=== PATIENT | female | born 1975 | race Caucasian/White ===

== ENCOUNTER 2018-05-08 08:57 | Day surgery (SDC) | payer MEDICAID ==
[~2018-05-08] VITALS: Ht 149.9 cm; Wt 52.6 kg
[2018-05-08] MEDS ORDERED: fentaNYL 0.05 MG/ML VIAL ONE (09:37)
[2018-05-08] MEDS ORDERED: MIDAZOLAM 2 MG/2 ML VIAL ONE (09:37)
[2018-05-08] MEDS ORDERED: MIDAZOLAM 2 MG/2 ML VIAL IVP ONE (10:25)
== END 2018-05-08 10:38 | disposition home or self-care (01) ==
LOC: MMU 08:57 → MDS 08:57
PROVIDERS: ATTEND Internal Medicine Gastroenterology
DX: K29.70 Gastritis, unspecified, without bleeding (principal); K44.9 Diaphragmatic hernia without obstruction or gangrene; Z79.899 Other long term (current) drug therapy
CPT/HCPCS: 36415; 43239; 86677; J2250; J3010